=== PATIENT | female | born 1950 | race Caucasian/White ===

== ENCOUNTER 2022-10-11 12:19 | Emergency (ER) | payer MEDICARE, OTHER ==
[~2022-10-11] VITALS: Ht 160 cm; Wt 112.0 kg
[~2022-10-11 12:19] MED LIST: ALBU90OI INH; AMOCLA875 PO; ANORO ELLIPTA1 EAC1 INH; AZIT500 PO; BUPR150ER PO; CEFD300 PO; CLON.2TP TP; DIPATR PO; DULERA 200 MCG/13 GM INH; ESCI20 PO; GABA400 PO; GABA600 PO; GUAI600T33 PO; HYDACE10B PO; HYDCHL25 PO; Hair, Skin & N1 EACH PO; INCRUSE ELLI62.5 MCG INH; Isosorbide Mono30 MG PO; LIDO5TP TOP; METH10 PO; NAPR500 PO; NITR.4SL SL; OMEP20ER PO; OMEPRAZOLE MAGN20 MG PO; OXYC1TAB11 PO; PRED20 PO; PROM25 PO; THIAZIDE; TRAZ100 PO; ZESTORETIC 20-121 EA PO
[2022-10-11] MEDS ORDERED: BUPRENORPHINE HC2 M1 SL (12:38)
[2022-10-11] MEDS ORDERED: STIOLTO RESPIMAT4 G1 IH (12:39)
[2022-10-11 15:50] VITALS: BP 161/85
== END 2022-10-11 16:18 | disposition home or self-care (01) ==
LOC: ER 12:19
DX: M25.552 Pain in left hip (principal); W18.30XA Fall on same level, unspecified, initial encounter; Z79.899 Other long term (current) drug therapy; J44.9 Chronic obstructive pulmonary disease, unspecified; I10 Essential (primary) hypertension; G47.30 Sleep apnea, unspecified; K21.9 Gastro-esophageal reflux disease without esophagitis
CPT/HCPCS: 72192; 73502; 93005; 93010; 99284-25

== ENCOUNTER → 2023-06-02 | Outpatient (CLI) | payer MEDICARE, OTHER | LOC: LAB EV 12:51 → LAB SHORT 12:51 | DX: Z13.6 Encounter for screening for cardiovascular disorders (principal); I10 Essential (primary) hypertension; R73.03 Prediabetes ==

== ENCOUNTER 2023-07-18 19:54 | Inpatient (IN) | payer MEDICARE, OTHER ==
[~2023-07-18] VITALS: Ht 160 cm; Wt 110.0 kg
[~2023-07-18 19:54] MED LIST changes: +BUPRENORPHINE HC2 M1 SL; +Enoxaparin 40 MG/0.4 ML SYR SC SCH; -GABA400 PO; +GABAPENTIN600 MG PO; +LIDO700A20 TOP; -OMEPRAZOLE MAGN20 MG PO; +STIOLTO RESPIMAT4 G1 INH
[2023-07-18] MEDS ORDERED: BUPROPION XL150 M1 PO (20:15)
[2023-07-18] MEDS ORDERED: LISINOPRIL-HCT1 EAC1 PO (20:15)
[2023-07-18] MEDS ORDERED: VENL75ER PO (20:16)
[2023-07-18 20:17] LABS: BASOPHILS ABSOLUTE AUTO 0.07 K/mm3 (0.00-0.23); BASOPHILS PERCENT AUTO 0 % (0-2); EOSINOPHILS ABSOLUTE AUTO 0.01 K/mm3 (0.00-0.68); EOSINOPHILS PERCENT AUTO 0 % (0-6); Hematocrit 41.7 % (33.0-51.0); Hemoglobin 14.4 g/dL (11.5-16.0); IMMATURE GRAN ABSOLUTE AUTO 0.13 K/mm3 (0.00-0.10); IMMATURE GRAN PERCENT AUTO 1 % (0-1); LYMPHOCYTES ABSOLUTE AUTO 1.31 K/mm3 (0.84-5.20); LYMPHOCYTES PERCENT AUTO 6 % (21-46); MONOCYTES ABSOLUTE AUTO 1.96 K/mm3 (0.16-1.47); MONOCYTES PERCENT AUTO 9 % (4-13); Mean Corpuscular HGB 30.8 pg (26.0-34.0); Mean Corpuscular HGB Conc 34.5 g/dL (31.5-36.5); Mean Corpuscular Volume 89 fL (80-100); Mean Platelet Volume 9.5 fL (9.1-12.4); NEUTROPHILS ABSOLUTE AUTO 19.01 K/mm3 (1.96-9.15); NEUTROPHILS PERCENT AUTO 85 % (41-73); Platelet Count 428 K/mm3 (150-400); RDW Coefficient Variation 12.4 % (11.7-14.2); RDW Standard Deviation 40.6 fL (35.1-46.3); Red Blood Cell Count 4.68 M/mm3 (3.80-5.20); White Blood Cell Count 22.49 K/mm3 (4.00-11.30)
[2023-07-18 20:18] LABS: PCO2 Venous 42.4 mmHg (38-42); pH Blood Venous 7.47 (7.34-7.37)
[2023-07-18 20:19] LABS: Base Excess Venous 7.5 mmol/L; Bicarbonate Venous 30.4 mmol/L (24.0-30.0)
[2023-07-18 20:44] LABS: Albumin, Blood 3.5 g/dL (3.4-5.0); Albumin/Globulin Ratio 0.7 (0.8-1.8); Bilirubin, Total 0.9 mg/dL (0.1-1.0); Bun/Creatinine Ratio 12.6 (12.0-20.0); Creatinine, Blood 0.64 mg/dL (0.40-1.00); Globulin, Blood 4.8 g/dL (2.2-4.0); Potassium, Blood 3.7 mmol/L (3.5-5.5); Total Protein, Blood 8.3 g/dL (6.4-8.2)
[2023-07-18] MEDS ORDERED: CefTRIAXone Sodium 2,000 MG in NS 100 ML IV ONE (21:30)
[2023-07-18] MEDS ORDERED: Azithromycin 500 MG in NS 250 ML IV ONE (21:30)
[2023-07-18] MEDS ORDERED: NS 1,000 ML IV SCH ×2 (21:30→23:00)
[2023-07-18 22:40] LABS: Influenza A, PCR NEGATIVE (NEGATIVE); Influenza B, PCR NEGATIVE (NEGATIVE); Resp Syncytial Virus, PCR NEGATIVE (NEGATIVE); SARS-Cov-2 (COVID-19) PCR, MMC NEGATIVE (NEGATIVE)
[2023-07-18] MEDS ORDERED: Dexamethasone Sod Phos 10 MG/ML 1ML VIAL IV ONE (23:05)
[2023-07-18] MEDS ORDERED: Ondansetron HCl 2 MG / ML 2ML Vial IV PRN (23:20)
[2023-07-18] MEDS ORDERED: Ipratropium/Albuterol SulF 2.5-0.5MG/3 ML Amp INH PRN (23:20)
[2023-07-19] VITALS (7 sets, daily range): BP systolic 128–176; BP diastolic 73–96
[2023-07-19 00:30] LABS: Source, Urine Clean Catch
[2023-07-19 00:40] LABS: Blood, Urine 2+ (Neg); Glucose Qualitative, Urine Neg (Neg); Ketones, Urine 3+ (Neg); Leukocyte Esterase, Urine 2+ (Neg); Nitrite, Urine Neg (Neg); Protein, Urine 2+ (Neg); Specific Gravity, Urine 1.015 (1.003-1.022); Urobilinogen, Urine 2+ (Normal); pH, Urine 6.5 (5.0-8.0)
[2023-07-19 00:54] LABS: Appearance, Urine Hazy (Clear); Bilirubin, Urine 1+ (Neg); Color, Urine Yellow (P-Yellow)
[2023-07-19 00:55] LABS: Amorphous Light (0-Heavy); Bacteria Mod /hpf; Red Blood Cells, Urine 0-2 /hpf (0-2); Squamous Epithelial Cells Few /hpf (Few)
--- NOTE | 2023-07-19 01:15 | NUR ---
ARRIVAL TO PCU AFTER RECEIVING REPORT FROM [facility] ED RN, PATIENT TRANSFERRED TO PCU VIA RNEY AT APPROX 0015. ABLE TO STAND AND AMBULATE TO BED WITH SBA FOR CORD, DEVICE MANAGEMENT. IS ALERT AND ORIENTED X4. PERRLA. MOVES ALL EXTREMITIES WITH GENERALIZED WEAKNESS T/O. USES FWW AT BASELINE. COMMUNICATES NEEDS EFFECTIVELY, FOLLOWS COMMANDS. TELEMETRY SHOWING SINUS TACH 110s. BP STABLE. DENIES CHEST PAIN, PRESSURE. ON ARRIVAL AT 4L VIA NC, SATs 87-92%. DOES REQUIRE ADDITIONAL OXYGEN WITH MOBILITY. CURRENTLY ON 5L VIA HI FLOW NC, SATs 88-92%. FREQUENT CONGESTED COUGH. GREEN, YELLOW SPUTUM. SHORTNESS OF BREATH WITH MOBILITY, INCREASED COUGHING. CALL LIGHT IN REACH.
[2023-07-19 02:13] LABS: BASOPHILS ABSOLUTE AUTO 0.05 K/mm3 (0.00-0.23); BASOPHILS PERCENT AUTO 0 % (0-2); EOSINOPHILS PERCENT AUTO 0 % (0-6); Hematocrit 38.9 % (33.0-51.0); IMMATURE GRAN PERCENT AUTO 0 % (0-1); LYMPHOCYTES ABSOLUTE AUTO 0.74 K/mm3 (0.84-5.20); LYMPHOCYTES PERCENT AUTO 3 % (21-46); MONOCYTES ABSOLUTE AUTO 1.28 K/mm3 (0.16-1.47); MONOCYTES PERCENT AUTO 6 % (4-13); Mean Corpuscular HGB 30.7 pg (26.0-34.0); Mean Corpuscular HGB Conc 33.4 g/dL (31.5-36.5); Mean Corpuscular Volume 92 fL (80-100); Mean Platelet Volume 9.6 fL (9.1-12.4); NEUTROPHILS ABSOLUTE AUTO 20.51 K/mm3 (1.96-9.15); NEUTROPHILS PERCENT AUTO 91 % (41-73); Platelet Count 371 K/mm3 (150-400); RDW Coefficient Variation 12.7 % (11.7-14.2); RDW Standard Deviation 42.9 fL (35.1-46.3); Red Blood Cell Count 4.24 M/mm3 (3.80-5.20); White Blood Cell Count 22.68 K/mm3 (4.00-11.30)
[2023-07-19] MEDS ORDERED: Dextromethorphan Polistirix 30 MG/5 ML 5ML Oral Syringe PO PRN (02:15)
[2023-07-19 02:27] LABS: International Normalized Ratio 1.06; Prothrombin Time Results 11.3 Sec (9.7-11.5)
[2023-07-19 02:32] LABS: Albumin, Blood 3.1 g/dL (3.4-5.0); Albumin/Globulin Ratio 0.7 (0.8-1.8); Bilirubin, Total 0.5 mg/dL (0.1-1.0); Bun/Creatinine Ratio 18.2 (12.0-20.0); Creatinine, Blood 0.77 mg/dL (0.40-1.00); Globulin, Blood 4.4 g/dL (2.2-4.0); Potassium, Blood 4.1 mmol/L (3.5-5.5); Total Protein, Blood 7.5 g/dL (6.4-8.2)
[2023-07-19] MEDS ORDERED: NS 1,000 ML IV ONE (04:05)
--- NOTE | 2023-07-19 04:31 | NUR ---
SHIFT SUMMARY NO ACUTE EVENTS SINCE ARRIVAL TO PCU. PATIENT RESTED QUIETLY T/O NIGHT. REMAINS ALERT AND ORIENTED X4. COMMUNICATES NEEDS EFFECTIVELY. TELEMETRY SHOWING SINUS TACH 100s-110s. BP STABLE. DENIES CHEST PAIN, PRESSURE. WHILE AT REST, PATIENT IS ON 4-5L VIA HI FLOW NC, SATs 88-92%. WITH MOBILITY, PATIENT DOES REQUIRE 7-10L VIA HI FLOW NC DOES DESAT <85%. SLOW TO RECOVER. THIS RN OFFERED TO PLACE PUREWICK FOR URINARY MANAGEMENT, PATIENT DENIED. REPORTING DIFFICULTY SLEEPING DUE TO FREQUENT CONGESTED COUGH. MD WARREN CONTACTED. PLACED ORDER FOR DELSYM COUGH SYRUP BID PRN. ADMINISTERED PER EMAR WITH SOME REPORTED RELIEF. PATIENT IS A ONE PERSON ASSIST TO BSC. VOIDING. SMALL SMEAR BM THIS SHIFT. IS REPOSITIONING HERSELF INDEPENDENTLY IN BED. CALL LIGHT IN REACH. IVF INFUSING PER EMAR. PALLATIVE CARE CONSULT PLACED VIA VOICEMAIL ON VOCERA. WILL CONTINUE TO MONITOR AND REPORT TO ONCOMING RN.
[2023-07-19] MEDS ORDERED: Nitroglycerin 0.4 MG SUBL SL SCH (06:05)
[2023-07-19] MEDS ORDERED: buprenorphine HCL 2 MG TAB.SUBL SL PRN ×2 (06:05→21:15)
[2023-07-19] MEDS ORDERED: Albuterol HFA200 ACT/6.7 GM INH INH PRN (06:10)
[2023-07-19] MEDS ORDERED: MethylPREDNISolone Sod Succ 125 MG Vial IV SCH (08:00)
[2023-07-19] MEDS ORDERED: Gabapentin 300 MG Cap PO SCH (09:00)
[2023-07-19] MEDS ORDERED: buPROPion HCL 150 MG TAB.SR.12H PO SCH (09:00)
[2023-07-19] MEDS ORDERED: LevoFLOXacin 750 MG/D5W 150ML 150 ML IV SCH (09:06)
--- NOTE | 2023-07-19 09:47 | NUR ---
PT MEDICATED PER EMAR.
--- NOTE | 2023-07-19 13:21 | NUR ---
ASSUMING CARE OF PT WHILE PRIMARY RN TO LUNCH, PT IN BED SITTING UP. SHE IS SINUS TACH 105 ON TELE. O2 IS 92% O 6L N/C. SHE CURRENLTY DENIES ANY NEEDS, CALL LIGHT IN REACH AND ALL VSS
[2023-07-19] MEDS ORDERED: STIOLTO RESPIMAT INH SCH (16:00)
[2023-07-19] MEDS ORDERED: Albuterol 2.5 MG/3 ML VIAL INH PRN (16:00)
[2023-07-19] MEDS ORDERED: Lidocaine 4% 1 Patch TOP SCH (17:05)
[2023-07-19] MEDS ORDERED: Acetaminophen 325 MG TABLET PO PRN (17:05)
[2023-07-19] MEDS ORDERED: FLUTICASONE PRO12 GM INH (17:51)
[2023-07-19] MEDS ORDERED: LATANOPROST2.5 M3 BOTHEYES (17:52)
--- NOTE | 2023-07-19 18:11 | NUR ---
SHIFT SUMMARY: PT HAS BEEN A&Ox4, ANSWERING QUESTIONS APPROPRIATELY, COOPERATIVE W/CARE, GENERALLY WEAK. PT REPORTS IMPROVEMENT TO SOB, O2 SATS MAINTAINED >90% ON 6 L/MIN VIA HUM HI FLOW NC (BASELINE IS 4 L/MIN). PT DENIES CP, SIN TACH ON MONITOR W/RATE 100-120s, CONGESTED COUGH PRODUCTIVE OF BROWN/YELLOW SPUTUM. PT HAS BEEN SBA TO [facility] [place] TOLERATING WELL, SITS AT SIDE OF BED FOR MEALS. THIS EVENING, PT C/O UPPER BACK PAIN AND HEADACHE. BUPROPRION OFFERED, PT STATES "OH, I JUST TOOK THAT", PT EDUCATED ABOUT NEED TO SEND HOME MEDICATIONS HOME W/FAMILY AND RISK OF TAKING HOME MEDICATIONS WHILE IN HOSPITAL, PT AGREEABLE TO PLAN AND SENT MEDICATIONS HOME W/GRANDDAUGHTER EXCEPT INHALERS THAT ARE TO BE SENT TO PHARMACY. NEW ORDERS OBTAINED FOR LIDOCAINE PATCH AND TYLENOL, PT MEDICATED PER EMAR, EGG CRATE APPLIED TO BED. WILL CONTINUE TO MONITOR AND TREAT ACCORDINGLY UNTIL CHANGE OF SHIFT.
[2023-07-19] MEDS ORDERED: Ipratropium/Albuterol SulF 2.5-0.5MG/3 ML Amp INH SCH (19:00)
[2023-07-19] MEDS ORDERED: Melatonin 5 MG Tablet PO PRN (19:55)
[2023-07-19] MEDS ORDERED: Azithromycin 500 MG in NS 250 ML IV SCH (21:00)
[2023-07-19] MEDS ORDERED: Misc. Inhaler INH SCH (21:00)
[2023-07-19] MEDS ORDERED: CefTRIAXone Sodium 1,000 MG in NS 100 ML IV SCH (21:00)
[2023-07-20] VITALS (9 sets, daily range): BP systolic 144–196; BP diastolic 77–100
[2023-07-20] MEDS ORDERED: CeFAZolin Sodium 2,000 MG in NS 100 ML IV SCH
[2023-07-20 04:57] LABS: Hematocrit 33.7 % (33.0-51.0); Mean Corpuscular HGB 33.1 pg (26.0-34.0); Mean Corpuscular HGB Conc 35.6 g/dL (31.5-36.5); Mean Corpuscular Volume 93 fL (80-100); Mean Platelet Volume 10.1 fL (9.1-12.4); Platelet Count 402 K/mm3 (150-400); RDW Coefficient Variation 12.5 % (11.7-14.2); RDW Standard Deviation 41.5 fL (35.1-46.3); Red Blood Cell Count 3.62 M/mm3 (3.80-5.20); White Blood Cell Count 20.91 K/mm3 (4.00-11.30)
[2023-07-20] MEDS ORDERED: HydroCHLOROthiazide 25 mg Tab PO SCH (05:05)
[2023-07-20] MEDS ORDERED: Lisinopril 20 MG Tab PO SCH (05:10)
[2023-07-20 05:19] LABS: Bun/Creatinine Ratio 20.5 (12.0-20.0); Calcium, Blood 9.4 mg/dL (8.5-10.1); Creatinine, Blood 0.54 mg/dL (0.40-1.00); Potassium, Blood 4.1 mmol/L (3.5-5.5)
[2023-07-20] MEDS ORDERED: Lisinopril-Hct1 EAC4 PO (05:22)
--- NOTE | 2023-07-20 05:23 | NUR ---
191 Assumed care of pt, bedside report completed. Shift plan of care reviewed, all questions answered. Pt with slept well per report during significant periods during this shift for which she is thankful. Melatonin PRN worked well per pt report. BP elevated towards the end of the shift, reviewed Med List with pt, appears pt is taking Lisinopril/HCTZ 20-25 but was not ordered here. Call to circulation assistant MD and new order received with first dose given now. Will report to oncoming shift and repeat BP 60 min after med administration. Pt up to BSC with 1 person assist. Pt using 7-9 lpm via HF NC, when home dose is 4 lpm at all times. OCONNELL though does not appear to need increase in O2 for stand/pivot to BSC at this time. Please see full assessment for additional details. No further complaints or concerns at this time, will continue to monitor. though is able to maintain O2 sat on the 8-9 lpm via HF NC
[2023-07-20] MEDS ORDERED: NS 250 ML IV PRN (08:45)
[2023-07-20] MEDS ORDERED: Furosemide 10 MG/ML 4ML Vial IV SCH (09:00)
[2023-07-20] MEDS ORDERED: Isosorbide Mononitrate 30 MG TABCR PO SCH (09:00)
--- NOTE | 2023-07-20 18:52 | NUR ---
SHIFT SUMMARY PT A/OX4 AND COOPERATIVE OF CARE. PT ABLE TO EXPRESS NEEDS AND USES CALL LIGHT. PT'S BP'S ELEVATED THIS MORNING, STABLE THIS EVENING. OTHER VSS THROUGHOUT SHIFT WITH O2 SATS IN THE 90'S 7-9L HF. NO REPORT OF CHESST PAIN/PRESSURE THROUGHOUT SHIFT. PT ENDORSED SOB WHEN "PAIN GETS UP THERE." PT PROVIDED HEAT PAD AND TREATED PER EMAR FOR PAIN. PT GIVEN LASIX, PUREWICK PUT IN PLACE PER PT REQUEST. PT ABLE SIT EOB ON HER OWN,, TOLERATES FAIR. OT ABLE TO POSITION SELF IN BED.
[2023-07-21] VITALS (7 sets, daily range): BP systolic 138–179; BP diastolic 77–109
[2023-07-21 04:16] LABS: Calcium, Blood 9.4 mg/dL (8.5-10.1); Creatinine, Blood 0.55 mg/dL (0.40-1.00)
--- NOTE | 2023-07-21 05:52 | NUR ---
1915 Assumed care of pt, bedside report completed. Shift plan of care reviewed with pt, all questions answered. Pt appeared to sleep well this shift with out significant issues. Chronic neck/back pain treated with pain med x1, repositioning and heating pad. Pt able to maintain SpO2 at 7lpm via High Flow nasal cannula. Pt appears to be improving slowly, reports sleeping better last night than the night prior. Please see full assessment for additional details. No further complaints or concerns at this time, will continue to monitor.
[2023-07-21] MEDS ORDERED: Furosemide 10 MG/ML 4ML Vial IV SCH (09:00)
[2023-07-21] MEDS ORDERED: Isosorbide Mononitrate 30 MG TABCR PO ONE (09:50)
[2023-07-21] MEDS ORDERED: Metoprolol Tartrate 25 MG Tab PO ONE (12:30)
[2023-07-21] MEDS ORDERED: Nystatin 100,000 Unit/ML Susp 5 ML UDC MT SCH (13:00)
[2023-07-21] MEDS ORDERED: Lidocaine 2% Viscous Soln 20 ML,Nystatin 100,000 Unit/ml Susp 20 ML,Mag Hydrox/Al Hydro... MT PRN (13:20)
--- NOTE | 2023-07-21 17:22 | NUR ---
SHIFT SUMMARY PT A/OX 4 AND COOPERATIVE OF CARE. PT ABLE TO EXPRESS NEEDS AND CALLED APPORPIATE. PT WAS UP TO CHAIR FOR MOST OF SHIFT, HELPED RELIEVE BACK PAIN. PT'S BP'S ELEVATED THIS MORNING, STABLE THIS AFTERNOON. PT TITRATED TO 6L NC, SATS REMAIN STABLE. OTHER VSS THROUGHOUT SHIFT. NO REPORT OF CHEST PAIN/PRESSURE THROUGHOUT SHIFT. PT DID REPORT SOME SOB WHEN HAVING PAIN AND MOVING TO EDGE OF BED. PUREWICK REMAIN IN PLACE, GOOD OUTPUT. PT STARTED OF METOPROLOL, SEE EMAR. PT REPORTED SOME DISCOMFORT OF HER MAOUTH AND NOTED TO HAVE SOME THRUSH, MAGIC MOUTHWASH ORERED.
[2023-07-21] MEDS ORDERED: Metoprolol Tartrate 25 MG Tab PO SCH (21:00)
[2023-07-22] VITALS (8 sets, daily range): BP systolic 115–189; BP diastolic 55–99
[2023-07-22] MEDS ORDERED: STIOLTO RESPIMAT INH SCH (03:20)
[2023-07-22] MEDS ORDERED: Albuterol 2.5 MG/3 ML VIAL INH SCH (03:50)
[2023-07-22 04:29] LABS: Hematocrit 30.1 % (33.0-51.0); Hemoglobin 10.3 g/dL (11.5-16.0); Mean Corpuscular HGB 31.2 pg (26.0-34.0); Mean Corpuscular HGB Conc 34.2 g/dL (31.5-36.5); Mean Corpuscular Volume 91 fL (80-100); Mean Platelet Volume 9.7 fL (9.1-12.4); Platelet Count 342 K/mm3 (150-400); RDW Coefficient Variation 12.3 % (11.7-14.2); RDW Standard Deviation 40.5 fL (35.1-46.3); White Blood Cell Count 12.96 K/mm3 (4.00-11.30)
[2023-07-22 04:50] LABS: Bun/Creatinine Ratio 29.9 (12.0-20.0); Calcium, Blood 7.9 mg/dL (8.5-10.1); Creatinine, Blood 0.47 mg/dL (0.40-1.00); Potassium, Blood 2.8 mmol/L (3.5-5.5)
--- NOTE | 2023-07-22 06:00 | NUR ---
1915 Assumed care of pt, dawson report completed. Shift plan of care reviewed with pt, all questions answered. Pt slept well this shift. Pt seems to be slowly improving though still requires 7-9 lpm O2 via hiflow nasal cannula. Lung sounds much better this shift than last awake overnight monitor. HR better controlled, BP trending down slowly. Pt reports chronic back/neck pain better after spending several hours in chair today. Please see full assessment for additional details. No further complaints or concerns at this time, will continue to monitor.
[2023-07-22] MEDS ORDERED: Potassium Chl 20MEQ/Water100ML 100 ML IV SCH (07:40)
[2023-07-22] MEDS ORDERED: Calcium Carbonate 500 MG Tab Chew PO PRN (08:50)
[2023-07-22] MEDS ORDERED: Isosorbide Mononitrate 60 MG TABCR PO SCH (09:00)
[2023-07-22] MEDS ORDERED: PredniSONE 20 MG Tab PO SCH (09:00)
[2023-07-22] MEDS ORDERED: Metoprolol Tartrate 50 MG Tab PO SCH (09:00)
[2023-07-22] MEDS ORDERED: Lisinopril 20 MG Tab PO SCH ×2 (09:00)
--- NOTE | 2023-07-22 18:06 | NUR ---
SHIFT SUMMARY PT A/OX4 AND COOPERATIVE OF CARE. PT ABLE TO EXPRESS NEEDS AND USES CALL LIGHT. PT WAS UP TO CHAIR AGAIN TODAY, PAIN BETTER MANAGED AGAIN. PT'S VSS THROUGHOUT SHIFT WITH O2 SATS IN THE 90'S ON 6-8L NC. ONLY TIME PT DESATED IS DURING MEALS. PT INSTRUCTED TO TAKE SMALL BITES AND BREAKS DURING MEALS. NO REPORT OF CHEST PAIN/PRESSURE. PT DID REPORT SOME SOB BUT STATED THAT "OVERALL FEELING BETTER." PUREWICK STILL IN PLACE PER PT REQUEST. PT RECIEVING DIURETICS FOR TREATMENT. PT'S POTASSIUM LOW THIS MORNING, IV REPLACEMNT GIVEN PER ORDER. PT USING MAGIC MOUTHWASH BEFORE MEALS PER ORDER. FAMILY TO BEDSIDE THIS EEVENING AND UPDATED ON PT'S CARE.
[2023-07-22] MEDS ORDERED: Lactobacil 2-S.Thermo-Bifido 1 1 Cap PO SCH (21:00)
[2023-07-22] MEDS ORDERED: HydrALAZINE HCl 20 MG / ML 1ML Vial IV ONE (21:35)
[2023-07-22] MEDS ORDERED: Lisinopril 20 MG Tab PO ONE (23:35)
[2023-07-23] MEDS ORDERED: HydrALAZINE HCl 20 MG / ML 1ML Vial IV ONE (03:55)
[2023-07-23 04:03] VITALS: BP 169/85
[2023-07-23 04:51] LABS: Bun/Creatinine Ratio 32.7 (12.0-20.0); Calcium, Blood 9.6 mg/dL (8.5-10.1); Creatinine, Blood 0.55 mg/dL (0.40-1.00); Magnesium, Blood 2.1 mg/dL (1.6-2.4); Potassium, Blood 3.3 mmol/L (3.5-5.5)
[2023-07-23 05:17] LABS: Bicarbonate Venous 45.9 mmol/L (24.0-30.0); PCO2 Venous 47.9 mmHg (38-42); pH Blood Venous 7.59 (7.34-7.37)
[2023-07-23 05:18] LABS: Base Excess Venous 24.1 mmol/L
[2023-07-23] MEDS ORDERED: LORazepam 2 MG/ML 1ML Injection IV ONE (05:30)
--- NOTE | 2023-07-23 05:43 | NUR ---
SHIFT SUMMARY PATIENT ALERT AND ORIENTED x4, ABLE TO MAKE NEEDS KNOWN TO STAFF. PATIENT ON 8L NC WITH SPO2 LOW TO MID 90s. PATIENT HYPERTENSIVE T/O SHIFT, MULTIPLE CALLS PLACED TO RESIDENT REGARDING INCREASED BP, SEE EMAR. PATIENT DENIED CHEST PAIN DURING THE NIGHT BUT DID STATE BACK OF ARM/SHOULDER PAIN. MEDICATED PER EMAR. PATIENT STANDBY ASSIST TO BEDSIDE COMMODE, ADEQUATE OUTPUT. PATIENT TOLERATING PO. NO OTHER CHANGES, WILL REPORT TO DAY SHIFT RN. CRIICAL pH CALLED TO THIS RN. RESIDENT UPDATED WITH RESULT. RESIDENT ORDERED BIPAP AND OT DOSE OF ATIVAN TO ASSIST PATIENT WITH KEEPING MASK ON.
[2023-07-23 07:49] VITALS: BP 135/74
[2023-07-23] MEDS ORDERED: Potassium Chloride 20 MEQ TabCR PO ONE (08:00)
[2023-07-23] MEDS ORDERED: AcetaZOLAMIDE 250 MG Tab PO SCH (09:00)
[2023-07-23 12:47] VITALS: BP 121/71
[2023-07-23 14:47] LABS: Influenza A, PCR NEGATIVE (NEGATIVE); Influenza B, PCR NEGATIVE (NEGATIVE); Resp Syncytial Virus, PCR NEGATIVE (NEGATIVE); SARS-Cov-2 (COVID-19) PCR, MMC NEGATIVE (NEGATIVE)
[2023-07-23 16:56] VITALS: BP 110/56
--- NOTE | 2023-07-23 17:56 | NUR ---
SHIFT SUMMARY PT REMAINS A/OX4, FREQUENT REQUESTS FOR HELP "REACHING" ITEMS THAT ARE WITHIN REACH. ENCOURAGED TO ACTIVELY PARTICIPATE IN CARE APPROPRIATE. SR-ST, OCCAS PVC'S. C/O BACK AND AXILLA PAIN AND PRESSURE THIS AM, LIDOCAINE PATCH AND CREAM RUBBED INTO SORE AREAS, PT REPORTS RELIEF OF PAIN. ON 6L NC, O2 SAT 94%. LUNGS COARSE THROUGHOUT, LOOSE PRODUCTIVE COUGH. GOOD APPETITE, DENIES NAUSEA. VOIDS USING BSC WITH STANDBY ASSIST. SKIN INTACT WITH SOME SCATTERED BRUISING. PG TO LEFT UPPER ARM, FLUSHES WELL, DOES NOT WITHDRAW BLOOD, SL. NO FAMILY TO BEDSIDE TO VISIT. PT'S SISTER CALLED AND SPOKE WITH PT. POC ONGOING.
[2023-07-23] MEDS ORDERED: Albuterol 2.5 MG/3 ML VIAL INH SCH (19:05)
[2023-07-23] MEDS ORDERED: MethylPREDNISolone Sod Succ 40 MG VIAL IV SCH (20:00)
[2023-07-23 20:44] VITALS: BP 123/93
[2023-07-23] MEDS ORDERED: Latanoprost 0.005% Opth Soln 2.5 ML BOTHEYES SCH (21:00)
[2023-07-23 23:24] VITALS: BP 156/75
[2023-07-24 04:01] VITALS: BP 164/85
--- NOTE | 2023-07-24 04:29 | NUR ---
SHIFT SUMMARY. SHIFT HAS BEEN UNREMARKABLE. PT HAS BEEN AOX4, PLEASANT, COOPERATIVE WITH CARE, CALLS APPROPRIATELY, ABLE TO MAKE NEEDS KNOWN. PT HAS SLEPT THROUGH MOST OF SHIFT. HAS DENIED PAIN THROUGHOUT SHIFT. FREQUENT BSC USE BUT CALLS APPROPRIATELY FOR ASSISTANCE AND ALL I+Os CHARTED APPROPRIATELY. BLOOD PRESSURE TRENDING UP OVER COURSE OF SHIFT. NOTIFIED HOSPITALIST DR. VEGA WHO ORDERED PRN HYDRALAZINE FOR MANAGEMENT, WILL ADMINISTER ONCE AVAILABLE. TELE ON THROUGHOUT SHIFT, NO ACUTE CHANGES OR EVENTS. BED LOCKED IN LOWEST POSITION. CALL LIGHT LEFT WITHIN REACH. CONTINUING TO MONITOR.
[2023-07-24] MEDS ORDERED: HydrALAZINE HCl 20 MG / ML 1ML Vial IV PRN (04:30)
[2023-07-24 07:36] VITALS: BP 173/81
[2023-07-24 08:40] LABS: Bun/Creatinine Ratio 39.6 (12.0-20.0); Calcium, Blood 9.6 mg/dL (8.5-10.1); Creatinine, Blood 0.58 mg/dL (0.40-1.00); Magnesium, Blood 2.4 mg/dL (1.6-2.4); Potassium, Blood 3.1 mmol/L (3.5-5.5)
[2023-07-24] MEDS ORDERED: Lisinopril 20 MG Tab PO SCH (09:00)
[2023-07-24] MEDS ORDERED: Cyclobenzaprine HCl 10 MG Tab PO PRN (09:00)
--- NOTE | 2023-07-24 09:08 | NUR ---
AM NOTE... ASSUMED CARE OF PT AT 0700, PT IS A&Ox4. PT IS ON 9L NC WITH O2 SATS>88% L/S COARSE T/O DIM IN THE BASES RR 18-24. SHE IS IN SR IN THE 90'S BP IS HYPERTENSIVE WITH SBPs IN THE 170'S. MEDS PER EMAR FOR HYPERTENSION. PT DENIES CHEST PAIN AT THIS TIME. PT IS UP IN THE CHAIR FOR BREAKFAST. CALL LIGHT IN REACH WILL CONTINUE TO MONITOR.
[2023-07-24] MEDS ORDERED: Potassium Chl 20MEQ/Water100ML 100 ML IV SCH (09:20)
[2023-07-24 11:22] VITALS: BP 118/73
--- NOTE | 2023-07-24 12:43 | NUR ---
Assumed care from primary RN for 30 minute lunch. No adverse events during lunch. Primary RN reassumed care.
[2023-07-24] MEDS ORDERED: NS 250 ML IV PRN (13:30)
[2023-07-24 16:05] VITALS: BP 120/82
--- NOTE | 2023-07-24 16:09 | NUR ---
I AM ASSUMING CARE OF THE PT FROM [facility]. WHILE AT BEDSIDE SHIFT REPORT, THE PT WAS SITTING UP IN BED WATCHING TV. SHE WAS ON 6L HFNC W/ SP02 >90%, BREATHING UNLABORED. ON TELE SHE WAS SR, PT DENIES ANY ANGINA, SOB, OR DISCOMFORTS. VS TAKEN WHILE IN THE ROOM AND THEY WERE ALL STABLE. PT HAD NO NEEDS WHILE AT BEDSIDE. SEE NOTES FOR UPDATES.
--- NOTE | 2023-07-24 16:15 | NUR ---
PT UPDATE.... PT'S VS STABLE T/O THIS SHIFT. PT'S O2 HAS BEEN TITRATED DOWN FROM 9L TO 7L. BEDSIDE REPORT GIVEN TO [facility].
[2023-07-24] MEDS ORDERED: Potassium Chloride 20 MEQ TabCR PO SCH (17:00)
--- NOTE | 2023-07-24 17:28 | NUR ---
SUMMARY AFTER ASSUMPTION OF CARE. THS PT REMAINS A&OX4, CALLS APPROPRIATELY, AND MAKES HER NEEDS KNOWN. SHE IS UP IN THE CHAIR EATING DINNER AT THIS TIME. SHE REMAINS ON 7L NC W/ SP02 >90%. VS REMAIN STABLE. ON TELE SHE IS SR. NO ACUTE EVENTS SINCE ASSUMPTION OF CARE.
[2023-07-24 19:50] VITALS: BP 164/96
[2023-07-24 23:20] VITALS: BP 141/74
[2023-07-25 04:25] LABS: Bun/Creatinine Ratio 35.6 (12.0-20.0); Calcium, Blood 9.3 mg/dL (8.5-10.1); Creatinine, Blood 0.76 mg/dL (0.40-1.00); Potassium, Blood 3.5 mmol/L (3.5-5.5)
[2023-07-25 04:32] VITALS: BP 154/82
--- NOTE | 2023-07-25 06:36 | NUR ---
EOS: SINCE ASSUMPTION FROM Linh DUMONT RN 2100 07/23. PATIETN HAS BEEN ANYWHERE FROM 5.5L VIA NC TO 9L, SPO2 >92%. NO ACUTE CONCERNS FROM THIS RN AT THIS TIME. DENIES CHEST PAIN PRESSURE OR SOB. LABILE SBP, 140-160. DENIES HANCOCK ETC. DID NEED 1 DOSE OF BUP, NO RESPIRATORY DEPRESSION. PATIENT RECIVED LAST IV SOLUMEDROL. NO ACUTE EVENTS.REFUSED SCD.S
[2023-07-25 07:55] VITALS: BP 158/74
[2023-07-25] MEDS ORDERED: Torsemide 20 MG TAB PO SCH (09:00)
[2023-07-25 11:19] VITALS: BP 121/79
[2023-07-25 16:28] VITALS: BP 152/83
--- NOTE | 2023-07-25 18:01 | NUR ---
SHIFT SUMMARY: PT HAS BEEN A&Ox4, ABLE TO MAKE NEEDS KNOWN, COOPERATIVE W/CARE. PT DENIES SOB, O2 SATS >92%, CURRENTLY ON 5 L/MIN. PT DENIES CP, SBP IN 150s, TELE DC'd THIS SHIFT. PT MEDICATED PER EMAR FOR C/O PAIN. PT SPENDS MAJORITY OF THE DAY IN RECLINER, SBA TO BSC, TOLERATING WELL. WILL CONTINUE TO MONITOR AND TREAT ACCORDINGLY UNTIL CHANGE OF SHIFT.
[2023-07-25 20:01] VITALS: BP 183/95
--- NOTE | 2023-07-25 20:07 | NUR ---
ASSUMED CARE OF PT AT BEGINNING OF SHIFT. PT TRANSFERRED TO MEDICAL FLOOR WITH ALL OF HER BELONGINGS, MEDICATIONS FROM LOCKED DRAWER, AND CHART. PT TRANSFERRED VIA WHEELCHAIR WITH AID AND RN. SHE WAS TRANSFERRED ON 5L NC. PT TRANSFERRED FROM CHAIR TO WHEELCHAIR AND TOLERATED WELL. REPORT GIVEN TO MEDICAL FLOOR NURSE BEFORE TRANSFER. PT STABLE AT TIME OF TRANSFER.
[2023-07-26 04:14] VITALS: BP 192/98
[2023-07-26 07:23] VITALS: BP 142/112
--- NOTE | 2023-07-26 09:06 | NUR ---
Pt laying in bed, but sat herself up on the side of the bed for breakfast, a/ox3, pleasant and cooperative with care, follows commands well, states she slept ok, lungs have insp wheezing t/o, occ productive cough, currently on 5 liters o2 via n/c, resp even and unlabored at rest, becomes dyspnic with activity, trace edema noted to b/l le, ppp+1, cap refill <3 sec, vs stable, afebrile, iv access is power glide to isreal site is clear and patent, btx4, abd flat soft nontender, voids without diff, skin c/w/d, maew, gypsy, call light in reach.
[2023-07-26] MEDS ORDERED: LISI20 PO (12:20)
[2023-07-26] MEDS ORDERED: METO50 PO (12:21)
[2023-07-26] MEDS ORDERED: DEXT30SU PO (12:21)
[2023-07-26] MEDS ORDERED: TORSE20 PO (12:22)
--- NOTE | 2023-07-26 12:58 | NUR ---
NOTE: PATIENT LEFT THE ROOM AT 1259 DISCHARGE HOME AND TRANSPORTED VIA WHEELCHAIR.
--- NOTE | 2023-07-26 14:16 | NUR ---
pt has been discharged to home, went over medication changes, and instructions, pt verbalized understanding, removed power glide with dressing applied, new meds were faxed to [facility], pt had home ev, left via wheelchair with audit spec and family with all her belongings.
== END 2023-07-26 14:08 | disposition home health service (06) | DRG 871 ==
LOC: ER 19:54 → PCU 23:18 → MEDS 07-25 19:56
PROVIDERS: Emergency Medicine; Family Medicine Adult Medicine; Internal Medicine; Student in an Organized Health Care Education/Training Program; ADMIT Internal Medicine
PROC: 3E03329 Introduction of Other Anti-infective into Peripheral Vein, Percutaneous Approach (ICD-10-PCS; 2023-07-18)
PROC: 5A0955A Assistance with Respiratory Ventilation, Greater than 96 Consecutive Hours, High Flow/Velocity Cannula (ICD-10-PCS; principal; 2023-07-20)
DX: A41.9 Sepsis, unspecified organism (principal); I50.33 Acute on chronic diastolic (congestive) heart failure; J18.9 Pneumonia, unspecified organism; J96.21 Acute and chronic respiratory failure with hypoxia; J96.22 Acute and chronic respiratory failure with hypercapnia; J44.0 Chronic obstructive pulmonary disease with (acute) lower respiratory infection; J44.1 Chronic obstructive pulmonary disease with (acute) exacerbation; F11.20 Opioid dependence, uncomplicated; Z68.41 Body mass index [BMI] 40.0-44.9, adult; D68.2 Hereditary deficiency of other clotting factors; I08.0 Rheumatic disorders of both mitral and aortic valves; R65.20 Severe sepsis without septic shock; E66.9 Obesity, unspecified; G47.33 Obstructive sleep apnea (adult) (pediatric); K21.9 Gastro-esophageal reflux disease without esophagitis; E87.6 Hypokalemia; I11.0 Hypertensive heart disease with heart failure; G89.4 Chronic pain syndrome; Z99.81 Dependence on supplemental oxygen; Z87.891 Personal history of nicotine dependence; Z90.710 Acquired absence of both cervix and uterus; Z90.722 Acquired absence of ovaries, bilateral; Z98.890 Other specified postprocedural states; Z88.0 Allergy status to penicillin; Z79.811 Long term (current) use of aromatase inhibitors
CPT/HCPCS: 0241U; 36415; 71046; 71275; 80048; 80053; 81001; 82803; 83605; 83735; 83880; 84132; 84145; 84484; 85025; 85027; 85610; 87040; 87070; 87077; 87086; 87186; 87205; 93005; 93010; 93306; 94640; 94664; 94760; 94761; 94762; 96365; 96375; 97110; 97161; 97165; 97530; 97535; 99285-25; A9270; J0360; J0456; J0690; J0696; J1100; J1650; J1940; J1956; J2919; J3480; J7030; J7050; J7512; Q9967

== ENCOUNTER → 2023-07-28 | Outpatient (CLI) | payer MEDICARE, OTHER ==
[~2023-07-28] MED LIST changes: +BUPROPION XL150 M1 PO; +DEXT30SU PO; -Enoxaparin 40 MG/0.4 ML SYR SC SCH; +FLUTICASONE PRO12 GM INH; +LATANOPROST2.5 M3 BOTHEYES; +LISI20 PO; +LISINOPRIL-HCT1 EAC1 PO; +Lisinopril-Hct1 EAC4 PO; +METO50 PO; +TORSE20 PO; +VENL75ER PO
[2023-07-28 18:57] LABS: BASOPHILS ABSOLUTE AUTO 0.05 K/mm3 (0.00-0.23); BASOPHILS PERCENT AUTO 0 % (0-2); EOSINOPHILS ABSOLUTE AUTO 0.64 K/mm3 (0.00-0.68); EOSINOPHILS PERCENT AUTO 4 % (0-6); Hemoglobin 13.8 g/dL (11.5-16.0); IMMATURE GRAN ABSOLUTE AUTO 0.25 K/mm3 (0.00-0.10); IMMATURE GRAN PERCENT AUTO 2 % (0-1); LYMPHOCYTES ABSOLUTE AUTO 4.36 K/mm3 (0.84-5.20); LYMPHOCYTES PERCENT AUTO 26 % (21-46); MONOCYTES ABSOLUTE AUTO 1.75 K/mm3 (0.16-1.47); MONOCYTES PERCENT AUTO 10 % (4-13); Mean Corpuscular HGB 31.7 pg (26.0-34.0); Mean Corpuscular HGB Conc 33.7 g/dL (31.5-36.5); Mean Corpuscular Volume 94 fL (80-100); Mean Platelet Volume 9.8 fL (9.1-12.4); NEUTROPHILS ABSOLUTE AUTO 10.01 K/mm3 (1.96-9.15); NEUTROPHILS PERCENT AUTO 59 % (41-73); Platelet Count 334 K/mm3 (150-400); RDW Coefficient Variation 12.9 % (11.7-14.2); RDW Standard Deviation 43.3 fL (35.1-46.3); Red Blood Cell Count 4.35 M/mm3 (3.80-5.20); White Blood Cell Count 17.06 K/mm3 (4.00-11.30)
[2023-07-28 20:04] LABS: Albumin, Blood 3.1 g/dL (3.4-5.0); Albumin/Globulin Ratio 0.9 (0.8-1.8); Bilirubin, Total 0.4 mg/dL (0.1-1.0); Bun/Creatinine Ratio 28.9 (12.0-20.0); Calcium, Blood 8.9 mg/dL (8.5-10.1); Creatinine, Blood 0.69 mg/dL (0.40-1.00); Globulin, Blood 3.4 g/dL (2.2-4.0); Potassium, Blood 4.1 mmol/L (3.5-5.5); Total Protein, Blood 6.5 g/dL (6.4-8.2)
== END | disposition home or self-care (01) ==
LOC: LAB SHORT 17:56 → LAB 17:56
PROVIDERS: Nurse Practitioner Family
DX: I10 Essential (primary) hypertension (principal)
CPT/HCPCS: 80053; 85025

== ENCOUNTER → 2023-08-19 | Outpatient (CLI) | payer MEDICARE, OTHER ==
[2023-08-19 14:51] LABS: BASOPHILS ABSOLUTE AUTO 0.05 K/mm3 (0.00-0.23); BASOPHILS PERCENT AUTO 1 % (0-2); EOSINOPHILS ABSOLUTE AUTO 0.39 K/mm3 (0.00-0.68); EOSINOPHILS PERCENT AUTO 5 % (0-6); Hematocrit 40.4 % (33.0-51.0); Hemoglobin 13.2 g/dL (11.5-16.0); IMMATURE GRAN ABSOLUTE AUTO 0.02 K/mm3 (0.00-0.10); IMMATURE GRAN PERCENT AUTO 0 % (0-1); LYMPHOCYTES ABSOLUTE AUTO 2.16 K/mm3 (0.84-5.20); LYMPHOCYTES PERCENT AUTO 28 % (21-46); MONOCYTES ABSOLUTE AUTO 0.88 K/mm3 (0.16-1.47); MONOCYTES PERCENT AUTO 11 % (4-13); Mean Corpuscular HGB 30.4 pg (26.0-34.0); Mean Corpuscular HGB Conc 32.7 g/dL (31.5-36.5); Mean Corpuscular Volume 93 fL (80-100); Mean Platelet Volume 10.4 fL (9.1-12.4); NEUTROPHILS ABSOLUTE AUTO 4.36 K/mm3 (1.96-9.15); NEUTROPHILS PERCENT AUTO 55 % (41-73); Platelet Count 354 K/mm3 (150-400); RDW Coefficient Variation 13.4 % (11.7-14.2); Red Blood Cell Count 4.34 M/mm3 (3.80-5.20); White Blood Cell Count 7.86 K/mm3 (4.00-11.30)
== END ==
LOC: LAB 12:31 → LAB SHORT 12:31
PROVIDERS: Nurse Practitioner Family
DX: J44.1 Chronic obstructive pulmonary disease with (acute) exacerbation (principal); J18.9 Pneumonia, unspecified organism
CPT/HCPCS: 85025

== ENCOUNTER → 2024-04-03 | Outpatient (CLI) | payer MEDICARE, OTHER | END | disposition home or self-care (01) | LOC: LAB 07:51 → PLD 07:51 | DX: D49.2 Neoplasm of unspecified behavior of bone, soft tissue, and skin (principal) | CPT/HCPCS: 88304; 88305 ==